=== PATIENT | male | born 1975 | race Caucasian/White ===

== ENCOUNTER 2017-04-02 10:36 | Emergency (ER) | payer MEDICARE ==
[~2017-04-02] VITALS: Ht 182.9 cm; Wt 83.9 kg
--- NOTE | 2017-04-02 11:04 | Urgent Treatment Center Report ---
See Addendum History of Present Issue Date/Time Seen by Provider 04/02/17 1059 Visit Reason Pt arrived:Walked Presenting Problem:left knee injury pt states he fell down onto concrete yesterday. Location if Accident: Onset of symptoms date/time:04/01/17 or onset unknown for: Have you (or family members/close friends) recently traveled outside the [place]? If Yes, where/when: Have you had exposure to infectious disease within the past month? TB? Other? Specify: Patient state yesterday he fell on concrete and landed on his left knee. State that he felt a "pop" and now having pain in knee area with some swelling. State that he has been able to stand on the leg with just a little pain but pain gets worse when he tryie to bend it or raise the leg up. State that his left knee is swollen and he has been using ice on and has been limping on the leg since the fall yesterday ALLERGIES Coded Allergies: morphine (04/02/17) History Medical History Surgical Hx Previous Surgery? Review of Systems All Other Systems Reviewed and Negative Comment Pain and swelling in left knee area after falling on concrete yesterday and landing on left knee Physical Exam Vital Signs Vital Signs Date Time Temp Pulse Resp B/P Pulse O2 O2 Flow FiO2 Ox Delivery Rate 04/02 1105 98.3 85 18 140/98 98 04/02 1044 98.3 85 18 140/98 98 General Appearance normal appearance, WD/WN, no apparent distress Respiratory Status Yes: trachea midline, chest symmetrical, non tender chest. No: respiratory distress. Cardiovascular normal exam, regular rate/rhythm, no peripheral edema Peripheral Pulses Pulses normal Yes Extremities swelling, Pain and swelling in left knee area after falling yesterday and landing on left knee on concrete, pain worsens with movement good pulses, denies numbness lower extremity good cap refill Neurologic alert, lead applications developer II-XII nml as tested, normal exam, no motor/sensory deficits, oriented x 3 Medical Decision Making LABS/Meds/Orders Pt receiving controlled substance in ED? No Results/Orders Orders Procedure Date/time Status UT STABILIZE JOINT/AREA 04/02 1144 Active KNEE-3 VIEWS-LT 04/02 1102 Active XRAY/CT/US XRAY/CT/US XRAY knee XR interpretation by reviewed by me Xray Results no fracture seen Comment Will notify patient if Radiologist sees anything different Progress [facility] Progress Notes Date 04/02/17 Time 1115 Departure Departure Time of Disposition 1216 Disposition DC Home or Self Care(routine) Clinical Impression Primary Impression: Knee injury Qualifiers: Encounter type: initial encounter Laterality: left Qualified Code: S89.92XA - Unspecified injury of left lower leg, initial encounter Condition STABLE Referrals Suzie OLIVEROS,Emigdio MOCK MD, NIC MINAYA Patient Instructions DI for Knee Pain Additional Instructions *RICE, Rest the extremity, Ice 15-20 minutes 3-4 times daily, Compress- wear the geovany wrap as discussed as much as possible to help reduce swelling and pain, Elevate the extremity when at rest *Geovany wrap is for support and help control swelling, use it except in the shower. Be sure that is not to tight but not to loose either *Elevate when resting *Ibuprofen 600-800mg every 6-8 hours as needed for pain an inflammation. If need something more can take Tylenol in between doses of Ibuprofen to help Immediately follow up for new or worsening of symptoms, or no noticeable improvement over the next 3-5 days Call Orthopedics and make appointment due to knee injury and for further evaluation Discharge Counseling Counseled pt/family regarding diagnosis, test results, medications/RX, home care, follow up needs Prescriptions Current Visit Scripts Ibuprofen (Ibuprofen 800MG) 800 MG PO QIDP PRN pain #30 TAB at 1218
[2017-04-02] MEDS ORDERED: IBUPROFEN800 MG PO (12:18)
[2017-04-02 12:25] VITALS: BP 140/98
--- NOTE | 2017-04-02 12:28 | RADIOLOGY REPORT PS360 ---
KNEE-3 VIEWS-LT HISTORY: Pain following injury FELL AND TWISTED KNEE ORDERING PHYSICIAN: GALLO SZYMANSKI APRN PATIENT AGE: 41 years COMPARISON: None FINDINGS: No obvious fracture or dislocation. There are mild osteoarthritic changes of the medial compartment and patellofemoral joint. There are 2 calcific densities projecting over the intercondylar region of the femur and could be due to overlying osteophytes versus loose bodies. Hypertrophic changes are present at the posterior tibia and tibial spines. Knee joint effusion is present in the suprapatellar region. IMPRESSION: 1. No definite acute fracture. 2. Osteoarthritis with knee joint effusion. 3. Loose bodies in the intercondylar region of the distal femur versus overlying osteophytes
== END 2017-04-02 12:27 | disposition home or self-care (01) ==
LOC: ER 10:36 → UTC 10:50 → ER 10:50 → UTC 12:27
PROC: 2W3MX1Z Immobilization of Left Lower Extremity using Splint (ICD-10-PCS; principal; 2017-04-02)
DX: S89.92XA Unspecified injury of left lower leg, initial encounter (principal); Z88.6 Allergy status to analgesic agent; W01.0XXA Fall on same level from slipping, tripping and stumbling without subsequent striking against object, initial encounter
CPT/HCPCS: 29505; G0463